=== PATIENT | male | born 1975 | race Caucasian/White ===

== ENCOUNTER 2016-09-25 15:25 | Emergency (ER) | payer OTHER ==
[~2016-09-25] VITALS: Ht 175.3 cm; Wt 104.5 kg
[2016-09-25 15:28] VITALS: Ht 175.3 cm; Wt 104.5 kg
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
[2016-09-25] MEDS ORDERED: HYDROCODONE/APAP (10/325) TAB PO ONE (16:30)
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
[2016-09-25] MEDS ORDERED: NAPR-260 PO (18:40)
[2016-09-25] MEDS ORDERED: CYCL-319 PO (18:40)
[2016-09-25] MEDS ORDERED: HYDR-902 PO (18:40)
[2016-09-25 19:21] VITALS: BP 136/94; PULSE 77; RESP 20; TEMP 98.8
== END 2016-09-25 19:18 | disposition home or self-care (01) ==
LOC: FTE 15:25
DX: S19.9XXA Unspecified injury of neck, initial encounter (principal); S39.92XA Unspecified injury of lower back, initial encounter; S29.001A Unspecified injury of muscle and tendon of front wall of thorax, initial encounter; R07.81 Pleurodynia; V49.40XA Driver injured in collision with unspecified motor vehicles in traffic accident, initial encounter
CPT/HCPCS: 71010; 71100; 72100; 72125